=== PATIENT | female | born 1990 | race African-American/Black ===

== ENCOUNTER 2016-05-23 03:04 | Emergency (ER) | payer BC, OTHER ==
[~2016-05-23] VITALS: Ht 157.5 cm; Wt 70.0 kg
[~2016-05-23 03:04] MED LIST: PNVPAK PO
[2016-05-23 03:06] VITALS: BP 118/62; PULSE 118; RESP 18; TEMP 99.1; O2SAT 99
[2016-05-23] MEDS ORDERED: SODIUM CHLOR 0.9% 1000 ML INJ 1,000 ML IV ONE ×2 (03:30→07:00)
[2016-05-23] MEDS ORDERED: SODIUM CHLORIDE 0.9% FLUSH 10 ML FLUSH IVF PRN (03:30)
[2016-05-23 03:40] VITALS: O2SAT 100
[2016-05-23 03:52] LABS: BASOPHIL % 0.4 % (0.0-2.0); EOSINOPHIL # 0.1 TH/MM3 (0-0.4); EOSINOPHIL % 0.8 % (0.0-4.0); HEMATOCRIT 32.9 % (35.0-46.0); HEMO FLAGS DIFF FINAL; LYMPH % 15.9 % (9.0-44.0); LYMPHOCYTE # 1.4 TH/MM3 (1.0-4.8); MEAN CELL VOLUME 93.6 FL (80.0-100.0); MEAN CORPUSCULAR HEMOGLOBIN 32.3 PG (27.0-34.0); MEAN CORPUSCULAR HGB CONC 34.5 % (32.0-36.0); MONO % 12.5 % (0.0-8.0); NEUT % 70.4 % (16.0-70.0); PLATELET COUNT 114 TH/MM3 (150-450); RED BLOOD COUNT 3.52 MIL/MM3 (4.00-5.30); RED CELL DISTRIBUTION WIDTH 12.7 % (11.6-17.2); WHITE BLOOD COUNT 8.5 TH/MM3 (4.0-11.0)
--- NOTE | 2016-05-23 04:10 | PD ---
HPI Chief Complaint: Cold / Flu Symptoms Time Seen by Provider: 03:26 Travel History International Travel<30 days: No Contact w/Intl Traveler<30days: No Traveled to known affect area: No History of Present Illness HPI Patient is a 25 year-old G for P3 female at approximately 38 weeks gestational age presents emergency Department with rather abrupt onset of shortness of breath proximal and 24 hours ago associated with dry cough. Patient doesn't volunteer that multiple family members have been sick at home. PFSH Past Medical History Medical History: Denies Significant Hx ?: : 4 Para: 3 Past Surgical History Surgical History: No Previous Surgery Social History Alcohol Use: No Tobacco Use: No Substance Use: No Allergies-Medications (Allergen,Severity, Reaction): Coded Allergies: No Known Allergies (Unverified , 11/27/14) Reported Meds & Prescriptions Reported Meds & Active Scripts Active Keflex (Cephalexin) 500 Mg Cap 500 Mg PO Q6H 7 Days Reported Pnv Ob+Dha ( Multivitamins) Braulio 1 Cap PO Review of Systems Except as stated in HPI: all other systems reviewed are Neg Physical Exam Narrative GENERAL: Well-developed well-nourished, no apparent distress, hoarse voice. SKIN: Focused skin assessment warm/dry. HEAD: Atraumatic. Normocephalic. EYES: Pupils equal and round. No scleral icterus. No injection or drainage. ENT: No nasal bleeding or discharge. Mucous membranes pink and moist. NECK: Trachea midline. No JVD. CARDIOVASCULAR: Regular rhythm with tachycardia. No murmur appreciated. RESPIRATORY: No accessory muscle use. Clear to auscultation. Breath sounds equal bilaterally. Tachypnea. GASTROINTESTINAL: Abdomen soft, non-tender, nondistended. Hepatic and splenic margins not palpable. MUSCULOSKELETAL: No obvious deformities. No clubbing. No cyanosis. Bilateral minimal pitting edema, worse on the left. Diameter of the lower extremities at the anterior tibial prominence is 36 on the right and 38 on left. NEUROLOGICAL: Awake and alert. No obvious cranial nerve deficits. Motor grossly within normal limits. Normal speech. PSYCHIATRIC: Appropriate mood and affect; insight and judgment normal. Data Data Last Documented VS Vital Signs Date Time Temp Pulse Resp B/P Pulse Ox O2 Delivery O2 Flow Rate FiO2 05/23/16 08:13 116 20 95/51 100 05/23/16 06:00 Room Air 05/23/16 03:06 99.1 Orders Electrocardiogram (05/23/16 03:26) Complete Blood Count With Diff (05/23/16 03:26) Comprehensive Metabolic Panel (05/23/16 03:26) Chest, Pa & Lat (05/23/16 03:26) Ecg Monitoring (05/23/16 03:26) Iv Access Insert/Monitor (05/23/16 03:26) Oximetry (05/23/16 03:26) Oxygen Administration (05/23/16 03:26) Sodium Chloride 0.9% Flush (Ns Flush) (05/23/16 03:30) Sodium Chlor 0.9% 1000 Ml Inj (Ns 1000 M (05/23/16 03:30) B-Type Natriuretic Peptide (05/23/16 03:26) Influenzae A/B Antigen (05/23/16 03:26) Us Leg Venous Doppler (05/23/16 04:08) Lung Scan - Perfusion (05/23/16 ) Sodium Chlor 0.9% 1000 Ml Inj (Ns 1000 M (05/23/16 07:00) Labs Laboratory Tests Test 05/23/16 03:30 White Blood Count 8.5 TH/MM3 Red Blood Count 3.52 MIL/MM3 Hemoglobin 11.3 GM/DL Hematocrit 32.9 % Mean Corpuscular Volume 93.6 FL Mean Corpuscular Hemoglobin 32.3 PG Mean Corpuscular Hemoglobin 34.5 % Concent Red Cell Distribution Width 12.7 % Platelet Count 114 TH/MM3 Mean Platelet Volume 10.1 FL Neutrophils (%) (Auto) 70.4 % Lymphocytes (%) (Auto) 15.9 % Monocytes (%) (Auto) 12.5 % Eosinophils (%) (Auto) 0.8 % Basophils (%) (Auto) 0.4 % Neutrophils # (Auto) 6.0 TH/MM3 Lymphocytes # (Auto) 1.4 TH/MM3 Monocytes # (Auto) 1.1 TH/MM3 Eosinophils # (Auto) 0.1 TH/MM3 Basophils # (Auto) 0.0 TH/MM3 CBC Comment DIFF FINAL Differential Comment Sodium Level 141 MEQ/L Potassium Level 3.1 MEQ/L Chloride Level 107 MEQ/L Carbon Dioxide Level 23.1 MEQ/L Anion Gap 11 MEQ/L Blood Urea Nitrogen 3 MG/DL Creatinine 0.32 MG/DL Estimat Glomerular Filtration 307 ML/MIN Rate Random Glucose 88 MG/DL Calcium Level 8.3 MG/DL Total Bilirubin 1.1 MG/DL Aspartate Amino Transf 18 U/L (AST/SGOT) Alanine Aminotransferase 14 U/L (ALT/SGPT) Alkaline Phosphatase 141 U/L B-Type Natriuretic Peptide 41 PG/ML Total Protein 6.1 GM/DL Albumin 2.7 GM/DL MDM Medical Decision Making Medical Screen Exam Complete: Yes Emergency Medical Condition: Yes Interpretation(s) EKG shows sinus tachycardia at a rate of 109, normal axis and normal R-wave progression. No concerning ST T changes. There is an RSR prime pattern in lead 3 with T-wave inversions could be right heart strain pattern that was fairly unremarkable. This is an abnormal EKG. Differential Diagnosis Dehydration, tachycardia, pulmonary embolism needs consideration, DVT, URI, pneumonia. Narrative Course Patient 25-year-old female presents tachycardic and tachypneic. She is to 38 weeks . Her left lower extremity is more swollen her right lower extremity. DVT study is negative. CT pulmonary embolism was initially ordered however after discussion with radiology is recommended the patient have a VQ scan instead this is a lower radiation risk according to Dr. Ignacio. VQ scan is been ordered and the patient has agreed to a small risk of radiation exposure to her child and possible defects which may company it and risk cancers. The remainder of the patient's initial workup clearing CBC BMP chest x-ray are within normal limits. Last 24 hours Impressions Lower Extremity Ultrasound 05/23/16 0408 Signed Impressions: Service Date/Time: Monday, May 23, 2016 05:09 - CONCLUSION: Normal examination. Jasiel Ignacio Jr., MD Chest X-Ray 05/23/16 0326 Signed Impressions: Service Date/Time: Monday, May 23, 2016 03:47 - CONCLUSION: Normal examination. Jasiel Ignacio Jr., MD Lung Scan Nuclear Medicine 05/23/16 0000 Signed Impressions: Service Date/Time: Monday, May 23, 2016 06:10 - CONCLUSION: No scintigraphic evidence of observed to suggest pulmonary embolus. Jasiel Ignacio Jr., MD Patient revisited and discussed initial workup as negative. Given her hoarsness of voice consideration given to URI as well. Discussed antibiotics and need for follow up with OBGYN today. She is going to deliver at [facility] she tells me. Additional fluids given, HR is improving slowly, Stable for discharge. Diagnosis Primary Impression: URI (upper respiratory infection) Qualified Code: J06.9 - Viral upper respiratory tract infection Med/Other Pt SpecificInfo: Prescription(s) given Scripts Cephalexin (Keflex)500 Mg [id number] Mg PO Q6H 7 Days Ref 0 Prov:Elton Dunham MD 05/23/16 Disposition: 01 DISCHARGE HOME Condition: Stable Elton Dunham MD May 23, 2016 04:10
[2016-05-23 04:12] LABS: ALT (GPT) 14 U/L (10-53); ANION GAP 11 MEQ/L (5-15); AST (GOT) 18 U/L (15-37); BICARBONATE 23.1 MEQ/L (21.0-32.0); BLOOD UREA NITROGEN 3 MG/DL (7-18); CHLORIDE 107 MEQ/L (98-107); GLOMERULAR FILTRATION RATE 307 ML/MIN (>89); POTASSIUM 3.1 MEQ/L (3.5-5.1); SODIUM (NA) 141 MEQ/L (136-145)
[2016-05-23 04:14] LABS: ALKALINE PHOSPHATASE 141 U/L (45-117); TOTAL BILIRUBIN ADULT 1.1 MG/DL (0.2-1.0)
--- NOTE | 2016-05-23 04:39 | RADRPT ---
EXAM DATE/TIME: 05/23/2016 03:47 [facility] COMPARISON: No previous studies available for comparison. INDICATIONS : Wheezing. MEDICAL HISTORY : None. SURGICAL HISTORY : None. ENCOUNTER: Initial ACUITY: 4 - 6 days PAIN SCORE: 0/10 LOCATION: Bilateral chest FINDINGS: PA and lateral views of the chest demonstrate the lungs to be symmetrically aerated without evidence of mass, infiltrate or effusion. The cardiomediastinal contours are unremarkable. Osseous structure s are intact. CONCLUSION: Normal examination. Jasiel Ignacio Jr., MD on May 23, 2016 at 4:37 Board Certified Radiologist. This report was verified electronically.
--- NOTE | 2016-05-23 05:46 | RADRPT ---
EXAM DATE/TIME: 05/23/2016 05:09 [facility] COMPARISON: No previous studies available for comparison. INDICATIONS : Left leg swelling. MEDICAL HISTORY : . SURGICAL HISTORY : None. ENCOUNTER: Initial ACUITY: 1 week PAIN SCORE: 5/10 LOCATION: Left leg. TECHNIQUE: Venous ultrasound of the leg was performed from the inguinal ligament to the proximal calf. Real-tracy e, color Doppler and spectral tracing, compression and augmentation techniques were used. FINDINGS: There is normal compressibility of the deep venous system from the inguinal region to the proximal ca lf. No echogenic clot is seen in the lumen of the common femoral, femoral, popliteal, and posterior tibial veins. There is a normal response of the venous system to proximal and distal augmentation an d respiration. CONCLUSION: Normal examination. Jasiel Ignacio Jr., MD on May 23, 2016 at 5:44 Board Certified Radiologist. This report was verified electronically.
[2016-05-23 06:00] VITALS: BP 108/53; PULSE 118; RESP 18; O2SAT 100
--- NOTE | 2016-05-23 06:26 | RADRPT ---
EXAM DATE/TIME: 05/23/2016 06:10 [facility] COMPARISON: No previous studies available for comparison. INDICATIONS : Shortness of breath with cough for one day. 38 weeks . DOSE: 1.1 mCi Tc99m Labeled MAA IV MEDICAL HISTORY : . SURGICAL HISTORY : None. ENCOUNTER: Initial ACUITY: 1 day PAIN SCALE: 0/10 LOCATION: chest TECHNIQUE: The patient was injected with MAA, and eight-view perfusion scan was performed. No ventilation study performed. FINDINGS: PERFUSION: There is a homogenous pattern of radiotracer uptake throughout both lungs. CONCLUSION: No scintigraphic evidence of observed to suggest pulmonary embolus. Jasiel Ignacio Jr., MD on May 23, 2016 at 6:23 Board Certified Radiologist. This report was verified electronically.
[2016-05-23] MEDS ORDERED: CEPH-460 PO (06:52)
[2016-05-23 08:13] VITALS: BP 95/51
--- NOTE | 2016-05-23 10:35 | EKG ---
Date Performed: 05/23/2016 Time Performed: 03:37:14 PTAGE: 25 years EKG: SINUS TACHYCARDIA MODERATE T-WAVE ABNORMALITY, CONSIDER ANTERIOR ISCHEMIA ABNORMAL ECG NO PREVIOUS TRACING DOCTOR: Louann Yo Interpretating Date/Time 05/23/2016 10:27:38
[2016-05-23] MEDS ORDERED: OXYTOCIN 10 UNIT/ML AMP ONE (18:55)
== END 2016-05-23 08:23 | disposition home or self-care (01) ==
LOC: NEPE 03:04
DX: O99.513 Diseases of the respiratory system complicating pregnancy, third trimester (principal); J06.9 Acute upper respiratory infection, unspecified; Z3A.38 38 weeks gestation of pregnancy
CPT/HCPCS: 71020; 78580; 80053; 83880; 85025; 87804; 93005; 93971; 96360; 96361; A9540; J2590; J3010; J7030

== ENCOUNTER 2016-05-23 18:54 | Inpatient (IN) | payer BC, MEDICAID ==
[~2016-05-23] VITALS: Ht 154.9 cm; Wt 68.0 kg
[~2016-05-23 18:54] MED LIST changes: +CEPH-460 PO; +DIPHTH/TETANUS/ACEL PERTUSSIS (BOOSTER) 0.5 ML VIAL/PFS IM ONE; +MEASLES, MUMPS, RUBELLA VACCINE 0.5 ML VIAL SQ ONE
[2016-05-23] MEDS ORDERED: OXYTOCIN 30 UNITS-500ML PREMIX 500 ML ONE (20:06)
[2016-05-23 20:20] LABS: AUTOMATED NEUTROPHIL # 5.8 TH/MM3 (1.8-7.7); BASOPHIL % 0.4 % (0.0-2.0); EOSINOPHIL % 0.5 % (0.0-4.0); HEMATOCRIT 35.3 % (35.0-46.0); HEMO FLAGS DIFF FINAL; LYMPH % 12.4 % (9.0-44.0); MEAN CELL VOLUME 94.5 FL (80.0-100.0); MEAN CORPUSCULAR HEMOGLOBIN 32.1 PG (27.0-34.0); MONO % 15.2 % (0.0-8.0); NEUT % 71.5 % (16.0-70.0); PLATELET COUNT 115 TH/MM3 (150-450); RED BLOOD COUNT 3.73 MIL/MM3 (4.00-5.30); RED CELL DISTRIBUTION WIDTH 12.8 % (11.6-17.2); WHITE BLOOD COUNT 8.1 TH/MM3 (4.0-11.0)
[2016-05-23] MEDS ORDERED: LACTATED RINGER'S 1000 ML BOLUS IV PRN (20:30)
[2016-05-23] MEDS ORDERED: LIDOCAINE HCL 1% 50 ML VIAL INFIL PRN (20:30)
[2016-05-23] MEDS ORDERED: CITRIC ACID-SODIUM CITRATE LIQ 30 ML UDC PO SCH (20:30)
[2016-05-23] MEDS ORDERED: LACTATED RINGER'S 1000 ML IV SCH (20:30)
[2016-05-23] MEDS ORDERED: NS 500 ML BOLUS IV PRN (20:30)
[2016-05-23] MEDS ORDERED: ONDANSETRON HCL 4 MG/2 ML VIAL IV PRN (20:30)
[2016-05-23] MEDS ORDERED: LIDOCAINE HCL 1% 50 ML VIAL I-DERMAL PRN (20:30)
[2016-05-23] MEDS ORDERED: NS 1000 ML IV PRN (20:30)
[2016-05-23] MEDS ORDERED: OXYTOCIN 30 UNITS 500ML PREMIX IV ONE (20:30)
[2016-05-23] MEDS ORDERED: MINERAL OIL 10 ML VIAL TOPICAL PRN (20:30)
[2016-05-23 20:40] LABS: ANION GAP 10 MEQ/L (5-15); AST (GOT) 18 U/L (15-37); BICARBONATE 22.8 MEQ/L (21.0-32.0); BLOOD UREA NITROGEN 2 MG/DL (7-18); CHLORIDE 107 MEQ/L (98-107); GLOMERULAR FILTRATION RATE 237 ML/MIN (>89); POTASSIUM 3.2 MEQ/L (3.5-5.1); SODIUM (NA) 140 MEQ/L (136-145)
[2016-05-23 20:43] LABS: ALKALINE PHOSPHATASE 143 U/L (45-117); ALT (GPT) 12 U/L (10-53); TOTAL BILIRUBIN ADULT 1.3 MG/DL (0.2-1.0)
[2016-05-23] MEDS ORDERED: ONDANSETRON ODT 4 MG TAB PO PRN (20:45)
[2016-05-23] MEDS ORDERED: ALUMINUM/MAGNESIUM/SIMETH 30 ML CUP PO PRN (20:45)
[2016-05-23] MEDS ORDERED: ACETAMINOPHEN 325 MG TAB PO PRN (20:45)
[2016-05-23] MEDS ORDERED: ZOLPIDEM TARTRATE 5 MG TAB PO PRN (20:45)
[2016-05-23] MEDS ORDERED: WITCH HAZEL 50%/GLYCERIN 12.5% 40 PAD JAR TOPICAL PRN (20:45)
[2016-05-23] MEDS ORDERED: BENZOCAINE 20% TOPICAL SPRAY 60 ML CAN TOPICAL PRN (20:45)
[2016-05-23] MEDS ORDERED: oxyCODONE/ACETAMINOPHEN 5 MG/325 MG TAB PO PRN (20:45)
[2016-05-23] MEDS: oxyCODONE/ACETAMINOPHEN 5 MG/325 MG 2 TABS PO PRN (20:54)
[2016-05-23 21:12] VITALS: RESP 18
[2016-05-23 21:13] VITALS: BP 112/62; PULSE 93
[2016-05-23 21:15] VITALS: TEMP 98
[2016-05-23 22:33] VITALS: BP 100/62; PULSE 89; RESP 16; TEMP 98.2
[2016-05-24] MEDS: oxyCODONE/ACETAMINOPHEN 5 MG/325 MG 2 TABS PO PRN ×2 (01:31→13:56)
[2016-05-24] MEDS: IBUPROFEN 600 MG TAB PO PRN ×3 (01:36→22:59)
--- NOTE | 2016-05-24 07:24 | HHI.OB ---
Subjective Post Day: 1 Remarks AFVSS overnight. Doing well. Lochia - slightly more than a period. No breast tenderness. She plans for both breast-feeding and formula. Appetite good. No nausea or vomiting. Positive flatus. No bowel movement. Ambulating well. Denies calf pain but has some edema. She continues to have cough, chest pain associated with cough, and intermittent shortness of breath which is much better than the previous day. Otherwise, she is doing well this morning and has no other complaints. (Eko,Jackelyn Birch MD R1) Objective Vitals/I&O Vital Signs Date Time Temp Pulse Resp B/P Pulse Ox O2 Delivery O2 Flow Rate FiO2 05/23/16 22:33 98.2 89 16 100/62 05/23/16 21:15 98.0 05/23/16 21:13 93 112/62 05/23/16 21:12 18 Objective Remarks GENERAL: Well-nourished, well-developed patient. CARDIOVASCULAR: Regular rate and rhythm without murmurs, gallops, or rubs. RESPIRATORY: Breath sounds equal bilaterally. No accessory muscle use. ABDOMEN/GI: Abdomen soft, non-tender. Fundus: Firm, non-tender at umbilicus. GENITOURINARY: Light to moderate bleeding. EXTREMITIES: No cyanosis or edema, non-tender, without signs of DVT. Medications and IVs Current Medications Medications (Trade) Dose Ordered Sig/Henry Route Start Time Stop Time Status Last Admin (Tylenol) 650 mg Q4H PRN PO 05/23/16 20:45 (Motrin) 600 mg Q6H PRN PO 05/23/16 20:45 05/24/16 01:36 (Percocet 5-325 Mg) 1 tab Q4H PRN PO 05/23/16 20:45 (Percocet 5-325 Mg) 2 tab Q4H PRN PO 05/23/16 20:45 05/24/16 01:31 (Americaine 20% Top Spr) 1 spray Q4H PRN TOPICAL 05/23/16 20:45 (Tucks Pads) 1 applic Q6H PRN TOPICAL 05/23/16 20:45 (Avelina-Colace) 2 tab Q12H PRN PO 05/23/16 20:45 (Ambien) 5 mg HS PRN PO 05/23/16 20:45 (Mag-Al Plus Susp Liq) 15 ml Q8H PRN PO 05/23/16 20:45 (Zofran Odt) 4 mg Q6H PRN PO 05/23/16 20:45 (Jackelyn Guo MD R1) Assessment/Plan Assessment and Plan 25y/o PPD#1 s/p -Continue routine care -Motrin and Percocet PRN for pain -Pericolase PRN for constipation -Encouraged OOB. Advised pelvic rest for 6 wks -Will need a follow-up appointment within 6 wks -Re: ctrl - patient would like a Depo-Provera shot before discharge -Patient would like circumcision for her son before discharge -Patient was prescribed Keflex 500 mg every 6 hours at the main ED yesterday. Suspect viral infection, chest x-ray is clear - will hold off on antibiotics at this time. Discussed with Dr. Andrade Discharge Planning Anticipate discharge tomorrow (Jackelyn Guo MD R1) Collaborating MD Comments day #1, patient doing well and I agree with her continued management plans (Tanja Andrade MD) Jackelyn Guo MD R1 May 24, 2016 07:24 Tanja Andrade MD May 24, 2016 09:03
[2016-05-24 08:00] VITALS: BP 104/66; PULSE 72; RESP 16; TEMP 98.8
[2016-05-24] MEDS: DOCUSATE SODIUM 50 MG/SENNA 8.6 MG TAB PO PRN (13:56)
[2016-05-24 20:50] VITALS: BP 103/62; PULSE 85; RESP 18; TEMP 98.7
[2016-05-25] MEDS ORDERED: IBUP-232 PO (07:30)
--- NOTE | 2016-05-25 07:30 | HHI.OB ---
Subjective Post Day: 2 Remarks AFVSS overnight. Doing well. Lochia - less than a period. No breast tenderness. She plans for both breast-feeding and formula. Appetite good. No nausea or vomiting. No flatus. No bowel movement. Ambulating well. Denies calf pain. She has a headache that is well controlled. Otherwise, she is doing well this morning and has no other complaints. Objective Vitals/I&O Vital Signs Date Time Temp Pulse Resp B/P Pulse Ox O2 Delivery O2 Flow Rate FiO2 05/24/16 20:50 103/62 05/24/16 20:50 98.7 85 18 05/24/16 08:00 98.8 72 16 104/66 Objective Remarks GENERAL: Well-nourished, well-developed patient. CARDIOVASCULAR: Regular rate and rhythm without murmurs, gallops, or rubs. RESPIRATORY: Breath sounds equal bilaterally. No accessory muscle use. ABDOMEN/GI: Abdomen soft, non-tender. Fundus: Firm, non-tender at umbilicus. GENITOURINARY: Light to moderate bleeding. EXTREMITIES: No cyanosis or edema, non-tender, without signs of DVT. Medications and IVs Current Medications Medications (Trade) Dose Ordered Sig/Henry Route Start Time Stop Time Status Last Admin (Tylenol) 650 mg Q4H PRN PO 05/23/16 20:45 (Motrin) 600 mg Q6H PRN PO 05/23/16 20:45 05/24/16 22:59 (Percocet 5-325 Mg) 1 tab Q4H PRN PO 05/23/16 20:45 05/25/16 04:17 (Percocet 5-325 Mg) 2 tab Q4H PRN PO 05/23/16 20:45 05/24/16 13:56 (Americaine 20% Top Spr) 1 spray Q4H PRN TOPICAL 05/23/16 20:45 05/24/16 13:56 (Tucks Pads) 1 applic Q6H PRN TOPICAL 05/23/16 20:45 05/24/16 13:56 (Avelina-Colace) 2 tab Q12H PRN PO 05/23/16 20:45 05/24/16 13:56 (Ambien) 5 mg HS PRN PO 05/23/16 20:45 (Mag-Al Plus Susp Liq) 15 ml Q8H PRN PO 05/23/16 20:45 (Zofran Odt) 4 mg Q6H PRN PO 05/23/16 20:45 Assessment/Plan Assessment and Plan 25y/o PPD#2 s/p -Continue routine care -Motrin and Percocet PRN for pain -Pericolase PRN for constipation -Encouraged OOB. Advised pelvic rest for 6 wks -Will need a follow-up appointment within 6 wks -Re: ctrl - patient would like a Depo-Provera shot before discharge Discussed with Dr. Brown Discharge Planning Anticipate discharge today Jackelyn Guo MD R1 May 25, 2016 07:30
--- NOTE | 2016-05-25 07:31 | HHI.DCPOC ---
Discharge Care Plan Diagnosis: (1) Vaginal delivery Report Symptoms to Your Doctor -Temperate above 100.5 degrees -Redness, of incision or excessive or foul smelling drainage -Unusual pain or calf pain -Increased vaginal bleeding -Painful or difficulty urinating -Feelings of extreme sadness or anxiety after 2 weeks Goals to Promote Your Health * To prevent worsening of your condition and complications * To maintain your health at the optimal level Directions to Meet Your Goals Take your medications as prescribed Follow your dietary instruction Follow activity as directed Ensure plenty of rest for recovery Drink fluids for hydration Keep your appointments as scheduled Take your immunizations and boosters as scheduled If your symptoms worsen call your PCP, if no PCP go to Urgent Care Center or Emergency Room Smoking is Dangerous to Your Health. Avoid second hand smoke Call the 24-hour crisis hotline for domestic abuse at Jackelyn Guo MD R1 May 25, 2016 07:31
[2016-05-25 07:46] VITALS: BP 93/53
[2016-05-25 08:00] VITALS: PULSE 73; RESP 18; TEMP 98.7
[2016-05-25] MEDS: IBUPROFEN 600 MG TAB PO PRN (09:29)
[2016-05-25] MEDS: DOCUSATE SODIUM 50 MG/SENNA 8.6 MG TAB PO PRN (09:29)
[2016-05-25] MEDS: oxyCODONE/ACETAMINOPHEN 5 MG/325 MG 2 TABS PO PRN (09:30)
== END 2016-05-25 13:45 | disposition home or self-care (01) | DRG 774 ==
LOC: H2EA 18:54 → H1EA 21:55
PROVIDERS: ADMIT Obstetrics & Gynecology Obstetrics; ATTEND Obstetrics & Gynecology Obstetrics
PROC: 10E0XZZ Delivery of Products of Conception, External Approach (ICD-10-PCS; principal; 2016-05-23)
DX: O98.53 Other viral diseases complicating the puerperium (principal); B34.9 Viral infection, unspecified; Z37.0 Single live birth
CPT/HCPCS: 71020; 78580; 80053; 83880; 85025; 86900; 86901; 87804; 88307; 90715; 93005; 93971; 96360; 96361; 99284; A9540; J2590; J3010; J7030